=== PATIENT | male | born 1995 | race Caucasian/White ===

== ENCOUNTER 2016-03-28 15:47 | Emergency (ER) | payer BC ==
[~2016-03-28] VITALS: Ht 167.6 cm; Wt 62.3 kg
[2016-03-28 15:50] VITALS: TEMP 36.7; Ht 167.6 cm; Wt 62.3 kg
[2016-03-28 16:12] VITALS: O2SAT 98
--- NOTE | 2016-03-28 16:13 | EMERGENCY ROOM VISIT NOTE ---
History First contact with patient: 15:54 Chief Complaint: CHEST PAIN Stated Complaint: HEART PAIN Nursing Triage Summary: Pt c/o "this is day 4 of consitant heart pain, I thouht it was reflux or something I ate caused it, but now I'm concerned I'm not going to wake up when I go to sleep" Left chest pain. Pressure. Unsure if it's a panic attack or heart. Denies increased stress. Concerned it may be Pericardidtis. History of Present Illness The patient is a 20 year old male who presents to the Emergency Room via private vehicle with complaints of "heart pain". The patient states that 4 days ago he was going through syllabus week at school and developed pain in the left anterior chest that was faint initially but worsened and has been steady. He rates the pain as a 2-3/10. He did exercise yesterday and notes that his heart rate above 150 bpm. He takes a creatine supplement. The pain is worse when he lays on his back, and feels this is around the perimeter of his left anterior chest. It is not worsened by deep breathing but he does feel that he has a head cold. There is no history of acid reflux or heart troubles. He did state he did consume alcohol over the past few days during some of this week. Review of Systems A complete 10-point Review of Systems was discussed with the patient, with pertinent positives and negatives listed in the History of Present Illness. All remaining Review of Systems questions can be considered negative unless otherwise specified. Past Medical/Surgical History Hand surgery in 2010, hip surgery in 2014. Family History High blood pressure Social History Smoking Status: Never Smoker Alcohol Use: occasionally Marital Status: single Housing Status: lives with roommate Occupation Status: [employer] student Current/Historical Medications No Active Prescriptions or Reported Meds Allergies Coded Allergies: No Known Allergies (Unverified , 03/28/16) Physical Exam Vital Signs Date Time Temp Pulse Resp B/P Pulse Ox O2 Delivery O2 Flow Rate FiO2 03/28/16 21:23 88 18 125/82 100 03/28/16 19:31 69 18 112/68 100 Room Air 03/28/16 17:47 69 17 99 03/28/16 17:28 117/71 03/28/16 17:17 78 16 03/28/16 16:58 115/83 03/28/16 16:47 77 12 99 03/28/16 16:28 118/86 03/28/16 16:21 73 03/28/16 16:12 98 Room Air 03/28/16 16:10 124/78 03/28/16 15:53 98 Room Air 03/28/16 15:50 36.7 97 16 150/99 98 Room Air Physical Exam VITAL SIGNS - Vital signs and nursing notes were reviewed. Patient is afebrile , he is hypertensive at 150/99, he is not tachycardic and is saturating well on room air 98%. GENERAL -20-year-old male appearing his stated age who is in no acute distress. Communicates well with provider and answers questions appropriately. SKIN - Without rashes. HEAD - NC/AT. EYES - PERRL with EOMI bilaterally. Sclera anicteric. Palpebral conjunctiva pink and moist with no injection noted. EARS - No deformities of external structures noted on gross examination bilaterally. NOSE - Midline and without cyanosis. No epistaxis or purulent drainage noted. MOUTH/OROPHARYNX - Without perioral cyanosis. Buccal mucosa pink and moist and without leukoplakia. NECK - Neck with FROM. Supple to palpation. No lymphadenopathy noted. No nuchal rigidity. LUNGS - Chest wall symmetric without accessory muscle use, intercostals retractions, or central cyanosis. Normal vesicular breath sounds CTA B/L. No wheezes, rales, or rhonchi appreciated. CARDIAC - RRR with S1/S2. No murmur, rubs, or gallops appreciated. ABDOMEN - Abdominal contour without pulsations or visible masses. BS normoactive all four quadrants. No tenderness, palpable masses, hepatosplenomegaly, or ascites noted. EXTREMITIES - No clubbing or peripheral cyanosis. No pretibial edema present. +5 /5 strength noted in UE/LE bilaterally. NEUROLOGIC - Cranial nerves II through XII grossly intact. Sensory intact to light touch throughout. PSYCH - A&Ox3 and cooperates fully with examiner. Pt is very pleasant and interacts well with examiner. Medical Decision & Procedures ER Provider Diagnostic Interpretation: SINGLE VIEW CHEST CLINICAL HISTORY: Atypical chest pain. FINDINGS: An AP, portable, upright chest radiograph is compared to study dated 06/23/2013. The cardiomediastinal silhouette is unremarkable. The lungs and pleural spaces are clear. No pneumothorax is seen. The bony thorax is grossly intact. IMPRESSION: No active disease in the chest. Electronically signed by: Marcel Patel M.D. 03/28/2016 4:46 PM Dictated Date/Time: 03/28/2016 4:45 PM Laboratory Results 03/28/16 16:05 Red Blood Count 5.18, Mean Corpuscular Volume 84.6, Mean Corpuscular Hemoglobin 30.5, Mean Corpuscular Hemoglobin Concent 36.1, Mean Platelet Volume 10.3, Neutrophils (%) (Auto) 73.6, Lymphocytes (%) (Auto) 13.8, Monocytes (%) (Auto) 11.5, Eosinophils (%) (Auto) 0.2, Basophils (%) (Auto) 0.5, Neutrophils # (Auto ) 4.15, Lymphocytes # (Auto) 0.78, Monocytes # (Auto) 0.65, Eosinophils # (Auto ) 0.01, Basophils # (Auto) 0.03 03/28/16 16:05 Test 03/28/16 16:05 03/28/16 18:52 03/28/16 19:50 White Blood Count 5.64 K/uL (4.8-10.8) Red Blood Count 5.18 M/uL (4.7-6.1) Hemoglobin 15.8 g/dL (14.0-18.0) Hematocrit 43.8 % (42-52) Mean Corpuscular Volume 84.6 fL (80-100) Mean Corpuscular Hemoglobin 30.5 pg (25-34) Mean Corpuscular Hemoglobin Concent 36.1 g/dl (32-36) Platelet Count 251 K/uL (130-400) Mean Platelet Volume 10.3 fL (7.4-10.4) Neutrophils (%) (Auto) 73.6 % Lymphocytes (%) (Auto) 13.8 % Monocytes (%) (Auto) 11.5 % Eosinophils (%) (Auto) 0.2 % Basophils (%) (Auto) 0.5 % Neutrophils # (Auto) 4.15 K/uL (1.4-6.5) Lymphocytes # (Auto) 0.78 K/uL (1.2-3.4) Monocytes # (Auto) 0.65 K/uL (0.11-0.59) Eosinophils # (Auto) 0.01 K/uL (0-0.5) Basophils # (Auto) 0.03 K/uL (0-0.2) RDW Standard Deviation 43.8 fL (36.4-46.3) RDW Coefficient of Variation 14.1 % (11.5-14.5) Immature Granulocyte % (Auto) 0.4 % Immature Granulocyte # (Auto) 0.02 K/uL (0.00-0.02) Prothrombin Time 10.9 SECONDS (9.0-12.0) Prothromb Time International Ratio 1.0 (0.9-1.1) Activated Partial Thromboplast Time 29.5 SECONDS (21.0-31.0) Partial Thromboplastin Ratio 1.1 D-Dimer < 190 ug/L FEU (0-500) Anion Gap 11.0 mmol/L (3-11) Est Creatinine Clear Calc Drug Dose 105.1 ml/min Estimated GFR () 127.2 Estimated GFR (Non- 109.8 BUN/Creatinine Ratio 9.8 (10-20) Calcium Level 9.5 mg/dl (8.5-10.1) Magnesium Level 2.2 mg/dl (1.8-2.4) Total Bilirubin 1.2 mg/dl (0.2-1) Aspartate Amino Transf (AST/SGOT) 43 U/L (15-37) Alanine Aminotransferase (ALT/SGPT) 32 U/L (12-78) Alkaline Phosphatase 81 U/L (45-117) Troponin I < 0.015 ng/ml (0-0.045) Total Protein 8.3 gm/dl (6.4-8.2) Albumin 4.8 gm/dl (3.4-5.0) Globulin 3.5 gm/dl (2.5-4.0) Albumin/Globulin Ratio 1.4 (0.9-2) Total Creatine Kinase 1868 U/L (39-308) Creatine Kinase MB 2.8 ng/ml (0.5-3.6) Creatine Kinase MB Ratio 0.1 (0-3.0) Urine Color YELLOW Urine Appearance CLEAR (CLEAR) Urine pH 6.0 (4.5-7.5) Urine Specific [place] 1.008 (1.000-1.030) Urine Protein NEG (NEG) Urine Glucose (UA) NEG (NEG) Urine Ketones 1+ (NEG) Urine Occult Blood NEG (NEG) Urine Nitrite NEG (NEG) Urine Bilirubin NEG (NEG) Urine Urobilinogen NEG (NEG) Urine Leukocyte Esterase NEG (NEG) Medications Administered Medications (Trade) Dose Ordered Sig/García Route Start Time Stop Time Status Last Admin Dose Admin Sodium Chloride (Nss 1000ml) 1,000 ml @ 999 mls/hr Q1H1M STAT IV 03/28/16 17:16 03/28/16 18:16 DC 03/28/16 17:44 999 MLS/HR Medical Decision Patient was seen and evaluated as above. After obtaining a thorough history and physical examination IV access was obtained and a CBC, CMP, chest 1 view portable, magnesium, troponin, d-dimer, PTT, prothrombin time, CPK, CK-MB, stat EKG secondary to subjective and objective examination findings. Monitor was applied and continuous pulse ox was initiated. CBC reveals no leukocytosis or anemia. Coagulation studies were within normal limits and negative d-dimer. CMP revealed slight decrease in BUN/creatinine ratio which I do not feel is significant at this time. Total bilirubin, AST and total CK were elevated. Total CK was 2220 indicating rhabdomyolysis. Total protein was increased at 8.3. Troponin was negative. 1L bolus was initiated and repeat CK were ordered. Improvement was shown as a total CK decrease to 1868. Troponin was repeated at 1730 and revealed a troponin of 0. Urine revealed no protein and 1+ ketones. Chest x-ray was unremarkable compared to previous. 2 EKGs were done with the first displaying a normal sinus rhythm with sinus arrhythmia with no ectopy or ischemic change noted and the repeat EKG that was done at 1740 revealed the same normal sinus rhythm with sinus arrhythmia with a ventricular rate of 72 bpm no ectopy or ischemic change. The patients workup was relatively unremarkable for acute cardiac causes and pulmonary causes. There was findings of rhabdomyolysis which showed improvement with fluids. I discussed potential admission with the patient and it was decided that he could drink fluids at home. He is to have the CK repeated tomorrow. I indicated to follow-up with daily at bedtime he did not seem happy with this idea and I believe he will follow up elsewhere. He is to follow-up with a sales support associate tomorrow. I spoke with the patient's father via speakerphone regarding to this case. My attending also personally evaluated the patient and spoke with the patient's father. It was decided the patient will go home and he will take 600 mg of ibuprofen every 6 hours for 2-3 days with food as well as have the CPK repeated, follow-up with daily at bedtime and call Dr. Heller's office first thing tomorrow morning to schedule follow-up. Dr. Heller is a sales support associate. The patient was stable throughout his visit and I believe he can follow up in the outpatient setting. He is to return with any worsening or concerning symptoms. I believe he can manage in the outpatient setting for the rhabdomyolysis. I believe that the rhabdomyolysis secondary to his new workout routine yesterday and supplementation intake. The patient was educated upon worrisome symptoms in which to return, had questions answered prior to discharge and was discharged home in good condition. I do not suspect any emergent or surgical nature to the patient's chest pain at this time. In evaluation treatment this patient the following differential diagnoses were entertained: Acute coronary syndrome, myocardial infarction, coronary embolism, pericarditis, pleural effusion, hemothorax, pneumothorax, costochondritis, anxiety, among others. On 03/29/2016 I called the patient via phone and spoke with him regarding his condition. This call took place at 2:29 PM. He states that he called the sales support associate office and has an appointment tomorrow at 12:45 PM. He indicated he had been drinking fluids and I encouraged him to drink lots of water to help with the rhabdomyolysis. He states that he did not have the total creatinine kinase repeated and I told him that it is recommended that he has is repeated to ensure that the levels are improving. He was instructed to call or return with any new/concerning symptoms. He was instructed to take ibuprofen 600 mg every 6 hours for the next 2-3 days to help with the pain. He had questions answered prior to ending the call and seemed happy with plan of care. Impression Primary Impression: Chest wall pain Additional Impression: Rhabdomyolysis Departure Information Dispostion Home / Self-Care Condition GOOD Prescriptions No Active Prescriptions or Reported Meds Referrals No Doctor, Assigned (PCP) Riley Heller M.D. Patient Instructions My [facility] Additional Instructions You were seen in the emergency Department for chest pain. A thorough workup has ruled out emergent causes at this time. Your total creatinine kinase level was found to be elevated today, your first level was 2220 with the second being 1868. Please have your total creatinine kinase level repeated tomorrow. You may go to [facility] for this. Would like to see this level continue to return to normal. Please call back to the emergency department if you're unable to find a place to have this repeated. Please call the number for the sales support associate listed above. This is Dr. Heller. Please call first thing tomorrow morning at 8 or 9 AM. If you begin experiencing worsening pain or any new concerning symptoms please return to emergency department immediately. Thank you for your time. Problem Qualifiers Additional Impression: Rhabdomyolysis Rhabdomyolysis type: non-traumatic Qualified Codes: M62.82 - Rhabdomyolysis
[2016-03-28 16:21] LABS: BASO % 0.5 %; BASO ABS # 0.03 K/uL (0-0.2); COMPLETE YES; EOS % 0.2 %; HEMATOCRIT 43.8 % (42-52); IG% 0.4 %; LYMPH % 13.8 %; LYMPH ABS # 0.78 K/uL (1.2-3.4); MEAN CELL VOLUME 84.6 fL (80-100); MEAN CORPUSCULAR HEMOGLOBIN 30.5 pg (25-34); MEAN CORPUSCULAR HGB CONC 36.1 g/dl (32-36); MEAN PLATELET VOLUME 10.3 fL (7.4-10.4); MONO % 11.5 %; NEUT % 73.6 %; PLATELET COUNT 251 K/uL (130-400); RED BLOOD COUNT 5.18 M/uL (4.7-6.1); WHITE BLOOD COUNT 5.64 K/uL (4.8-10.8)
[2016-03-28 16:36] LABS: PARTIAL THROMBOPLASTIN RATIO 1.1; PROTHROMBIN TIME (PATIENT) 10.9 SECONDS (9.0-12.0)
[2016-03-28 16:45] LABS: ALT/SGPT 32 U/L (12-78); AST/SGOT 43 U/L (15-37); BLOOD UREA NITROGEN 10 mg/dl (7-18); BUN/CREATININE RATIO 9.8 (10-20); CALCIUM 9.5 mg/dl (8.5-10.1); CARBON DIOXIDE 25 mmol/L (21-32); CHLORIDE 103 mmol/L (98-107); CREATININE 0.98 mg/dl (0.60-1.40); GLUCOSE 72 mg/dl (70-99); MAGNESIUM 2.2 mg/dl (1.8-2.4); POTASSIUM 3.8 mmol/L (3.5-5.1); SODIUM 139 mmol/L (136-145)
--- NOTE | 2016-03-28 16:48 | DIAGNOSTIC IMAGING REPORT ---
SINGLE VIEW CHEST CLINICAL HISTORY: Atypical chest pain. FINDINGS: An AP, portable, upright chest radiograph is compared to study dated 06/23/2013. The cardiomediastinal silhouette is unremarkable. The lungs and pleural spaces are clear. No pneumothorax is seen. The bony thorax is grossly intact. IMPRESSION: No active disease in the chest. Electronically signed by: Marcel Patel M.D. 03/28/2016 4:46 PM Dictated Date/Time: 03/28/2016 4:45 PM
[2016-03-28 16:59] LABS: ALB/GLOB RATIO 1.4 (0.9-2); ALKALINE PHOSPHATASE 81 U/L (45-117); CKMB/CK RATIO 0.1 (0-3.0)
[2016-03-28] MEDS ORDERED: SODIUM CHLORIDE 0.9% 1000ML 1,000 ML IV STA (17:16)
[2016-03-28 19:31] LABS: CKMB/CK RATIO 0.1 (0-3.0)
[2016-03-28 20:38] LABS: URINE APPEARANCE CLEAR (CLEAR); URINE BILIRUBIN NEG (NEG); URINE COLOR YELLOW; URINE NITRITE NEG (NEG); URINE SPECIFIC GRAVITY 1.008 (1.000-1.030); UROBILINOGEN NEG (NEG); ZZUR CULT IF INDIC CLEAN CATCH NO
[2016-03-28 20:52] LABS: MANUAL MICROSCOPIC REQUIRED? NO; REVIEW REQ? NO
--- NOTE | 2016-03-28 21:06 | EMERGENCY ROOM VISIT NOTE ---
ED Visit Note First contact with patient: 15:54 The patient was seen and examined with Nelson Varner PA-C. I agree with the history, physical and findings. Please see the note for disposition and details. The patient has had 4 days of left-sided chest pain in the upper aspect. This is somewhat reproducible on examination. His physical examination is benign otherwise. He was somewhat anxious. He was concerned that he has a heart problem since he had the pain present for multiple days. He had also noted that he was able to exercise for 15 minutes on a stationary bike and got his heart rate up to 160 bpm without any change in his pain symptoms. The patient had an unremarkable CBC, chemistry panel, LFTs, cardiac markers, and d-dimer. Repeat cardiac markers were negative. Chest x-ray was negative. ECG was negative as well. I discussed all of his findings with him at length. Patient felt somewhat reassured that his tests were negative but was still somewhat concerned. He asked that I speak to his father and I did so. He was felt that the patient would benefit from a follow-up with cardiology. He had a slight elevation of his total CK and this was likely due to his workout. He was hydrated and repeat was less. He will need a follow-up tomorrow. This was discussed. The patient was referred to cardiology.
[2016-03-28 21:23] VITALS: BP 125/82; PULSE 88; O2SAT 100
== END 2016-03-28 21:18 | disposition home or self-care (01) ==
LOC: C.EDB 15:48
DX: R07.89 Other chest pain (principal); M62.82 Rhabdomyolysis

== ENCOUNTER → 2016-03-30 | Outpatient (CLI) | payer BC ==
[~2016-03-30] MED LIST: OPTIRAY 320 IV PRN
--- NOTE | 2016-03-30 16:14 | DIAGNOSTIC IMAGING REPORT ---
CT ANGIOGRAM OF THE CHEST CLINICAL HISTORY: Atypical chest pain COMPARISON STUDY: Chest x-ray dated 03/28/2016 TECHNIQUE: Following the IV administration of 96 mL of Optiray-320, CT angiogram of the thorax was performed from the thoracic inlet to the lung bases utilizing the pulmonary embolus protocol. Images are reviewed in the axial, sagittal, and coronal planes. IV contrast was administered without complication. MIP imaging was performed. CT DOSE: 196.46 mGy.cm FINDINGS: No pathologically enlarged axillary mediastinal or hilar lymph nodes were visualized. There was no evidence of thoracic aortic dilatation. There were no pulmonary artery filling defects to indicate acute pulmonary embolism. No pleural effusions are visualized. There was no evidence of focal pulmonary consolidation. IMPRESSION: 1. No acute intrathoracic findings 2. No evidence of acute pulmonary embolism 3. No focal pulmonary consolidation 4. No evidence of pathologic adenopathy Electronically signed by: Gus Perry M.D. 03/30/2016 4:12 PM Dictated Date/Time: 03/30/2016 4:09 PM
== END | disposition home or self-care (01) ==
LOC: C.CTS 15:51
PROVIDERS: ATTEND Internal Medicine Cardiovascular Disease
DX: R07.89 Other chest pain (principal); R74.8 Abnormal levels of other serum enzymes; R00.2 Palpitations

== ENCOUNTER 2017-01-18 16:45 | Emergency (ER) | payer BC ==
[~2017-01-18] VITALS: Ht 165.1 cm; Wt 63.9 kg
[2017-01-18 16:54] VITALS: TEMP 36.8; Ht 165.1 cm; Wt 63.9 kg
--- NOTE | 2017-01-18 17:56 | DIAGNOSTIC IMAGING REPORT ---
THORACIC SPINE 3 VIEWS ROUTINE HISTORY: 21 years-old Male R sided mid thoracic spine pain s/p lifting. Hx fx acute mid thoracic spine pain status post lifting weights COMPARISON: Chest CT 03/30/2016 TECHNIQUE: Frontal and lateral views of the thoracic spine FINDINGS: The ribs at T12 are hypoplastic. The thoracic vertebral segments are normal in height without compression deformity or malalignment. There are no significant degenerative changes. Imaged lung ludwig are clear. IMPRESSION: No acute fracture or subluxation identified. The above report was generated using voice recognition software. It may contain grammatical, syntax or spelling errors. Electronically signed by: Conrado Elizondo M.D. 01/18/2017 5:55 PM Dictated Date/Time: 01/18/2017 5:54 PM
--- NOTE | 2017-01-18 18:11 | EMERGENCY ROOM VISIT NOTE ---
History First contact with patient: 17:00 Chief Complaint: BACK PAIN Stated Complaint: BACK PAIN,PREVIOUS STRESS FRACTURE History of Present Illness The patient is a 21 year old male who presents to the Emergency Room via private vehicle with complaints of "back pain, previous stress fracture". The patient states that he has a history of stress fracture in the thoracic spine. He states that a few days ago on Saturday he was in the gym weightlifting. He developed some pain in his mid back between the shoulder blades he thought that perhaps this may be a muscle strain. He states that this has been progressive and yesterday while playing intramural football a [employer] the pain worsened. It is not a sharp pain between the shoulder blades the thoracic spine worse with different movements. It is also worse with a deep inspiration. There is no chest pain or true shortness of breath. He states that this pain is similar to previous stress fracture therefore he would like an x-ray to rule out fracture. He rates the pain as a 9/10. Review of Systems A complete 10-point Review of Systems was discussed with the patient, with pertinent positives and negatives listed in the History of Present Illness. All remaining Review of Systems questions can be considered negative unless otherwise specified. Past Medical/Surgical History Stress fx of the spine Family History No pertinent Social History Smoking Status: Never Smoker Alcohol Use: occasionally Marital Status: single Housing Status: lives with roommate Occupation Status: [employer] student Current/Historical Medications Scheduled Cyclobenzaprine Hcl (Flexeril), 5 MG PO TID Scheduled PRN Hydrocodone/Acetaminophen 5MG/325MG (Cyrus 5MG/325MG), 1-2 TABLET PO Q6 PRN for Pain Physical Exam Vital Signs Date Time Temp Pulse Resp B/P (MAP) Pulse Ox O2 Delivery O2 Flow Rate FiO2 01/18/17 18:42 75 16 103/63 96 Room Air 01/18/17 16:54 36.8 82 20 122/79 100 Room Air Physical Exam VITAL SIGNS - Vital signs and nursing notes were reviewed. Stable. GENERAL -21-year-old male appearing his stated age who is in no acute distress. Communicates well with provider and answers questions appropriately. SKIN - Without rashes. The skin overlying the thoracic spine is unremarkable. HEAD - NC/AT. NECK - Neck with FROM. No c-spine tenderness. LUNGS - Chest wall symmetric without accessory muscle use, intercostals retractions, or central cyanosis. Normal vesicular breath sounds CTA B/L. No wheezes, rales, or rhonchi appreciated. CARDIAC - RRR with S1/S2. No murmur, rubs, or gallops appreciated. MUSCULOSKELETAL: There is tenderness to palpation overlying the mid thoracic spine at the location of the right paraspinous musculature. There is no true spinous processes tenderness. EXTREMITIES - No clubbing or peripheral cyanosis. Full range of motion of the right upper extremity. No reproducible tenderness with range of motion of the shoulder. Medical Decision & Procedures ER Provider Diagnostic Interpretation: THORACIC SPINE 3 VIEWS ROUTINE HISTORY: 21 years-old Male R sided mid thoracic spine pain s/p lifting. Hx fx acute mid thoracic spine pain status post lifting weights COMPARISON: Chest CT 03/30/2016 TECHNIQUE: Frontal and lateral views of the thoracic spine FINDINGS: The ribs at T12 are hypoplastic. The thoracic vertebral segments are normal in height without compression deformity or malalignment. There are no significant degenerative changes. Imaged lung ludwig are clear. IMPRESSION: No acute fracture or subluxation identified. The above report was generated using voice recognition software. It may contain grammatical, syntax or spelling errors. Electronically signed by: Conrado Elizondo M.D. 01/18/2017 5:55 PM Dictated Date/Time: 01/18/2017 5:54 PM Medical Decision Patient was seen and evaluated as above. He presents to us today with back pain. X-ray was obtained. Results as above. No acute fracture. I suspect strain of the paraspinous musculature of the thoracic spine. He is tried over- the-counter medication without relief. I will utilize Flexeril and Cyrus for this. He is also here with his father. At this time he appears stable for outpatient management. There is no neurovascular deficit on exam nor do I suspect NM or PE. He is not tachycardic, and is saturating well on room air at 100%. He was educated upon management, educated upon worrisome symptoms in which to return, had questions answered prior to discharge, and was discharged home in good condition. In evaluation treatment this patient the following differential diagnoses were entertained: Fracture, dislocation, sprain, strain, NM, PE, pericarditis, among others. [place] Drug Monitoring Program Search Results: patient reviewed within database, no issues identified Medication Reconcilliation Current Medication List: was personally reviewed by me Impression Primary Impression: Back pain Departure Information Dispostion Home / Self-Care Condition GOOD Prescriptions Hydrocodone/Acetaminophen 5MG/325MG (Cyrus 5MG/325MG) Tab 1-2 TABLET PO Q6 Y for Pain, #15 TAB For Initial Treatment Prov: Nelson Varner PA-C 01/18/17 Cyclobenzaprine Hcl (FLEXERIL) 5 Mg Tab 5 MG PO TID for 5 Days, #15 TAB PRN Prov: Nelson Varner PA-C 01/18/17 Referrals No Doctor, Assigned (PCP) Loy Chavira, DO Patient Instructions My [facility] Additional Instructions You have been treated in the Emergency Department for Back Pain. You have been prescribed NORCO to be used for pain control. This is a narcotic medication. You cannot drive or consume alcohol while on this medicine. This medicine should only be used for pain that cannot be controlled with over-the- counter pain medicines. You have been prescribed Flexeril (cyclobenzaprine) 1-2 tabs orally, three times per day. Do NOT exceed 30 mg (6 tabs) per day. Take your first dose at bedtime as it can make you drowsy. Always take all medications as prescribed. For pain control, you can use the following noxq-end-sbvedji medicines: - Regular strength (325mg/tab) Tylenol (acetaminophen) 2 tabs every 4-6 hours as needed. Do not exceed 12 tablets in a 24 hour period. Avoid taking more than 3 grams (3000 mg) of Tylenol per day. This includes any other sources of acetaminophen you may take on a regular basis. PLEASE DO NOT USE WITH THE NORCO - Regular strength (200 mg/tab) Advil (ibuprofen) 1-2 tabs every 4-6 hours as needed. Do not exceed a dose of 3200 mg per day. If this is an acute injury, ice can be applied to the area of pain for the first 3 days to help decrease pain and inflammation. After the first 3 days, a heating pad can be used over the area for continued soothing relief. You should schedule a follow-up appointment in 2-3 days with your Primary Care Provider for further evaluation and treatment of your back pain ([facility]), position classification specialist if persists. Return to the Emergency Department if your current symptoms worsen despite treatment course outlined above, or if you develop any of the following symptoms : intractable pain despite aforementioned treatment course, loss of control of your bowel or bladder, numbness or tingling in your groin, or development of a fever.
[2017-01-18] MEDS ORDERED: CYCL5TAB PO (18:28)
[2017-01-18] MEDS ORDERED: HYDR-5688 PO (18:28)
[2017-01-18 18:42] VITALS: BP 103/63; PULSE 75; O2SAT 96
== END 2017-01-18 18:43 | disposition home or self-care (01) ==
LOC: C.EDB 16:46 → C.EDD 18:43
DX: M54.6 Pain in thoracic spine (principal); Z87.312 Personal history of (healed) stress fracture